=== PATIENT | female | born 1975 | race Caucasian/White ===

== ENCOUNTER 2016-07-17 23:31 | Emergency (ER) | payer BC ==
[~2016-07-17] VITALS: Ht 167.6 cm; Wt 87.5 kg
[2016-07-18 00:57] LABS: BASOPHIL % 0.4 % (0-2); PLATELET COUNT 239 x10^3mcL (130-400); RED CELL DISTRIBUTION WIDTH 13.7 % (11.5-14.5)
[2016-07-18 01:11] LABS: CALCIUM 8.6 mg/dL (8.5-10.1); CARBON DIOXIDE 26.1 mmol/L (21-32); CHLORIDE SERUM 102 mmol/L (98-107); CREATININE SERUM 0.5 mg/dL (0.6-1.0); GFR1 > 60 mL/min; GLUCOSE SERUM 111 mg/dL (74-106); POTASSIUM SERUM 3.5 mmol/L (3.5-5.1); SODIUM SERUM 133 mmol/L (136-145)
[2016-07-18 01:16] LABS: ALBUMIN 3.7 g/dL (3.4-5.0); ALKALINE PHOSPHATASE 83 U/L (46-116); ALT/SGPT 22 U/L (14-59); AST/SGOT 12 U/L (15-37); TOTAL PROTEIN, SERUM 7.6 g/dL (6.4-8.2)
[2016-07-18 03:40] VITALS: BP 161/105
== END 2016-07-18 03:40 | disposition home or self-care (01) ==
LOC: ED 23:31
PROVIDERS: Emergency Medicine
DX: I10 Essential (primary) hypertension (principal); G44.209 Tension-type headache, unspecified, not intractable; E88.81 Metabolic syndrome and other insulin resistance; Z79.899 Other long term (current) drug therapy
CPT/HCPCS: 83880; J1885; Q0092

== ENCOUNTER 2018-05-21 22:04 | Emergency (ER) | payer SELFPAY ==
[~2018-05-21] VITALS: Ht 162.6 cm; Wt 98.5 kg
[2018-05-21 22:12] VITALS: Ht 162.6 cm; Wt 98.5 kg
[2018-05-21 23:23] LABS: BASOPHIL % 0.3 % (0-2); PLATELET COUNT 236 x10^3mcL (130-400); RED CELL DISTRIBUTION WIDTH 13.6 % (11.5-14.5)
[2018-05-21 23:38] LABS: CALCIUM 8.6 mg/dL (8.5-10.1); CARBON DIOXIDE 26.2 mmol/L (21-32); CHLORIDE SERUM 102 mmol/L (98-107); CREATININE SERUM 0.6 mg/dL (0.6-1.0); GFR1 > 60 mL/min; GLUCOSE SERUM 113 mg/dL (74-106); POTASSIUM SERUM 3.7 mmol/L (3.5-5.1); SODIUM SERUM 138 mmol/L (136-145)
[2018-05-21 23:43] LABS: ALBUMIN 3.7 g/dL (3.4-5.0); ALKALINE PHOSPHATASE 79 U/L (46-116); ALT/SGPT 57 U/L (14-59); AST/SGOT 31 U/L (15-37); BILIRUBIN TOTAL 0.2 mg/dL (0.20-1.00); LIPASE 88 IU/L (73-393)
[2018-05-21 23:50] LABS: TOTAL PROTEIN, SERUM 8.5 g/dL (6.4-8.2)
[2018-05-22 00:57] VITALS: BP 158/101
== END 2018-05-22 00:57 | disposition home or self-care (01) ==
LOC: ED 22:04
PROVIDERS: Emergency Medicine
DX: R11.2 Nausea with vomiting, unspecified (principal); T37.5X5A Adverse effect of antiviral drugs, initial encounter; Y92.89 Other specified places as the place of occurrence of the external cause; J11.1 Influenza due to unidentified influenza virus with other respiratory manifestations
CPT/HCPCS: 36415; Q0162